=== PATIENT | male | born 1990 | race African-American/Black ===

== ENCOUNTER 2018-09-25 23:13 | Emergency (ER) | payer SELFPAY ==
[~2018-09-25] VITALS: Ht 177.8 cm; Wt 82.0 kg
[~2018-09-25 23:13] MED LIST: BENADRYL; NYQUIL
[2018-09-26 00:02] LABS: BASOPHILS % 0.5 % (0.0-2.0); EOSINOPHILS % 0.5 % (0.0-5.0); HEMATOCRIT. 53.2 % (42.0-52.0); HEMOGLOBIN. 18.1 g/dL (14.0-18.0); LYMPHOCYTES % 29.6 % (20.0-50.0); MEAN CORPUSCULAR HEMOGLOBIN 29.7 pg (28.0-32.0); MEAN CORPUSCULAR VOLUME 87.1 fL (80.0-94.0); MEAN PLATELET VOLUME 7.8 fl (7.4-10.4); MONOCYTES % 8.2 % (2.0-8.0); NEUTROPHILS % 61.2 % (40.0-76.0); PLATELET 222 x1000/uL (130-400); RED CELL DISTRIBUTION WIDTH 13.9 % (11.6-14.6)
[2018-09-26 00:06] LABS: CHLORIDE 105 mEq/L (98-107)
[2018-09-26 00:11] LABS: ETHANOL BLOOD < 10 mg/dL
[2018-09-26 01:45] VITALS: BP 141/76
== END 2018-09-26 03:02 | disposition home or self-care (01) ==
LOC: ER 23:13
DX: R06.02 Shortness of breath (principal); F15.10 Other stimulant abuse, uncomplicated; F14.10 Cocaine abuse, uncomplicated; F17.210 Nicotine dependence, cigarettes, uncomplicated
CPT/HCPCS: 36415; 80053; 80307; 80320; 80329; 82962; 85025; 99283; Z7610; G0480

== ENCOUNTER 2018-09-26 06:39 | Inpatient (IN) | payer SELFPAY ==
[~2018-09-26] VITALS: Ht 175.3 cm; Wt 95.5 kg
[2018-09-26 08:06] LABS: BASOPHILS % 0.4 % (0.0-2.0); EOSINOPHILS % 0.2 % (0.0-5.0); HEMOGLOBIN. 17.9 g/dL (14.0-18.0); LYMPHOCYTES % 19.1 % (20.0-50.0); MEAN CORPUSCULAR HEMOGLOBIN 29.7 pg (28.0-32.0); MEAN CORPUSCULAR VOLUME 86.2 fL (80.0-94.0); MEAN PLATELET VOLUME 8.1 fl (7.4-10.4); MONOCYTES % 8.6 % (2.0-8.0); NEUTROPHILS % 71.7 % (40.0-76.0); PLATELET 217 x1000/uL (130-400); RED BLOOD CELL COUNT 6.03 mill/uL (4.7-6.1); RED CELL DISTRIBUTION WIDTH 13.7 % (11.6-14.6)
[2018-09-26 08:12] LABS: CHLORIDE 108 mEq/L (98-107)
[2018-09-26] MEDS ORDERED: LORAZEPAM 1MG TABLET PO ONE (09:15)
[2018-09-26] MEDS ORDERED: ENOXAPARIN 100MG/ML SYR SUBCUT ONE (09:45)
[2018-09-26] MEDS ORDERED: ACETAMINOPHEN 325MG TABLET PO PRN (10:15)
[2018-09-26] MEDS ORDERED: LORAZEPAM 0.5MG TABLET PO PRN (10:15)
[2018-09-26] MEDS ORDERED: NITROGLYCERIN 0.4MG TABLET SL SL PRN (10:15)
[2018-09-26] MEDS ORDERED: CLONIDINE 0.1MG TABLET PO PRN (10:15)
[2018-09-26] MEDS ORDERED: ONDANSETRON HCL 4MG/2ML INJ IV PRN (10:15)
[2018-09-26] MEDS ORDERED: GUAIFENESIN 200MG/10ML SUGAR FREE UDC PO PRN (10:15)
[2018-09-26] MEDS ORDERED: KETOROLAC 15MG/ML VIAL IV PRN (10:15)
[2018-09-26] MEDS ORDERED: DOCUSATE SODIUM 100MG CAPSULE PO PRN (10:15)
[2018-09-26] MEDS ORDERED: IPRATROPIUM/ALBUTEROL 0.5-3(2.5)MG/3ML NEB INH PRN (10:15)
[2018-09-26] MEDS ORDERED: MAGNESIUM/ALUMINUM HYDROXIDE/SIMETHICONE 30ML UDC PO PRN (10:15)
[2018-09-26 10:20] LABS: ETHANOL BLOOD < 10 mg/dL
[2018-09-26 10:24] LABS: LDL CHOLESTEROL 89 mg/dL (5-100)
[2018-09-26 10:25] LABS: HDL CHOLESTEROL 70 mg/dL (40-59)
[2018-09-26] MEDS: ASPIRIN 325MG EC TABLET PO SCH (11:01)
[2018-09-26 11:25] VITALS: BP 112/48
[2018-09-26] MEDS ORDERED: DILTIAZEM HCL 60MG TABLET PO SCH (12:00)
[2018-09-26 12:02] LABS: *AMPHETAMINES SCREEN URINE PRESUMTIVE POSITIVE (NEGATIVE); *BARBITURATES SCREEN URINE NEGATIVE (NEGATIVE); *BENZODIAZEPINES SCREEN URINE NEGATIVE (NEGATIVE); *COCAINE SCREEN URINE NEGATIVE (NEGATIVE); METHADONE URINE SCREEN NEGATIVE (NEGATIVE); OPIATES URINE SCREEN NEGATIVE (NEGATIVE)
[2018-09-26 12:03] LABS: CANNABINOID URINE SCREEN PRESUMTIVE POSITIVE (NEGATIVE); PHENCYCLIDINE URINE SCREEN NEGATIVE (NEGATIVE)
[2018-09-26] MEDS ORDERED: POTASSIUM CHLORIDE 20MEQ TABLET SR PO NR (13:00)
[2018-09-26] MEDS ORDERED: CLONIDINE 0.2MG TABLET PO PRN (13:00)
[2018-09-26] MEDS: FAMOTIDINE 20MG TABLET PO SCH ×2 (13:15→21:57)
[2018-09-26 16:00] VITALS: BP 127/68
[2018-09-26 16:42] LABS: CREATINE KINASE 681 IU/L (39-308)
[2018-09-26 16:43] LABS: CREATINE KINASE MB FRACTION 6.5 ng/mL (0.5-3.6)
[2018-09-26] MEDS: DILTIAZEM HCL 90MG TABLET NG SCH (18:12)
[2018-09-26 20:00] VITALS: BP 117/60
[2018-09-26] MEDS ORDERED: ZOLPIDEM TARTRATE 5MG TABLET PO PRN (21:00)
[2018-09-26] MEDS: ENOXAPARIN 100MG/ML SYR SUBCUT SCH (21:58)
[2018-09-27] VITALS: BP 122/50
[2018-09-27 00:12] LABS: CREATINE KINASE 604 IU/L (39-308)
[2018-09-27 00:13] LABS: CREATINE KINASE MB FRACTION 5.3 ng/mL (0.5-3.6)
[2018-09-27] MEDS: DILTIAZEM HCL 90MG TABLET NG SCH ×3 (00:48→12:06)
[2018-09-27 04:00] VITALS: BP 108/58
[2018-09-27 06:19] LABS: BASOPHILS % 0.4 % (0.0-2.0); EOSINOPHILS % 2.2 % (0.0-5.0); HEMATOCRIT. 47.8 % (42.0-52.0); HEMOGLOBIN. 16.5 g/dL (14.0-18.0); LYMPHOCYTES % 33.9 % (20.0-50.0); MEAN CORPUSCULAR HEMOGLOBIN 30.3 pg (28.0-32.0); MEAN PLATELET VOLUME 7.9 fl (7.4-10.4); MONOCYTES % 9.3 % (2.0-8.0); NEUTROPHILS % 54.2 % (40.0-76.0); PLATELET 193 x1000/uL (130-400); RED BLOOD CELL COUNT 5.43 mill/uL (4.7-6.1); RED CELL DISTRIBUTION WIDTH 13.6 % (11.6-14.6)
[2018-09-27 06:43] LABS: CHLORIDE 111 mEq/L (98-107)
[2018-09-27 06:54] LABS: CREATINE KINASE MB FRACTION 4.6 ng/mL (0.5-3.6)
[2018-09-27 06:55] LABS: CREATINE KINASE 545 IU/L (39-308)
[2018-09-27 06:57] LABS: HDL CHOLESTEROL 54 mg/dL (40-59); LDL CHOLESTEROL 84 mg/dL (5-100)
[2018-09-27 08:00] VITALS: BP 92/62
[2018-09-27] MEDS: FAMOTIDINE 20MG TABLET PO SCH (09:04)
[2018-09-27] MEDS: ASPIRIN 325MG EC TABLET PO SCH (09:04)
[2018-09-27] MEDS: ENOXAPARIN 100MG/ML SYR SUBCUT SCH (09:05)
[2018-09-27 11:16] VITALS: BP 18/119
[2018-09-27 12:00] VITALS: BP 119/64
[2018-09-27] MEDS ORDERED: POTASSIUM CHLORIDE 20MEQ TABLET SR PO NR (14:00)
== END 2018-09-27 15:15 | disposition home or self-care (01) | DRG 201 ==
LOC: ER 06:39 → 5WST 09:34 → ENRESERV 10:45
PROVIDERS: ADMIT Internal Medicine; ATTEND Internal Medicine
DX: I48.91 Unspecified atrial fibrillation (principal); D72.829 Elevated white blood cell count, unspecified; I47.1 Supraventricular tachycardia; F12.10 Cannabis abuse, uncomplicated; F15.10 Other stimulant abuse, uncomplicated; F17.210 Nicotine dependence, cigarettes, uncomplicated; F41.9 Anxiety disorder, unspecified; I10 Essential (primary) hypertension; Z82.41 Family history of sudden cardiac death; Z59.0 Homelessness; Z79.899 Other long term (current) drug therapy
CPT/HCPCS: 36415; 71045; 80061; 80305; 80320; 82550; 82553; 83036; 83735; 83880; 84443; 84484; 85379; 93005; 93306; 93970; 96372; 99285; J1650; G0480

== ENCOUNTER 2021-07-03 15:06 | Emergency (ER) | payer MEDICAID ==
[~2021-07-03] VITALS: Ht 175.3 cm; Wt 104.0 kg
[2021-07-03] MEDS ORDERED: HYDROCODONE/ACETAMINOPHEN 5/325MG TABLET PO ONE (15:45)
[2021-07-03 15:59] LABS: BASOPHILS % 0.5 % (0.0-2.0); EOSINOPHILS % 1.7 % (0.0-5.0); HEMATOCRIT. 41.4 % (42.0-52.0); HEMOGLOBIN. 14.3 g/dL (14.0-18.0); LYMPHOCYTES % 24.9 % (20.0-50.0); MEAN CORPUSCULAR HEMOGLOBIN 29.6 pg (28.0-32.0); MEAN PLATELET VOLUME 7.7 fl (7.4-10.4); NEUTROPHILS % 65.9 % (40.0-76.0); PLATELET 193 x1000/uL (130-400); RED BLOOD CELL COUNT 4.81 mill/uL (4.7-6.1); RED CELL DISTRIBUTION WIDTH 13.6 % (11.6-14.6)
[2021-07-03 16:04] LABS: CHLORIDE 111 mEq/L (98-107)
[2021-07-03] MEDS ORDERED: IOHEXOL-300 100 ML BOTTLE ONE (16:30)
[2021-07-03] MEDS ORDERED: AMOX-424 MT (17:08)
[2021-07-03 17:43] VITALS: BP 126/75
== END 2021-07-03 17:44 | disposition home or self-care (01) ==
LOC: ER 15:13
DX: K04.7 Periapical abscess without sinus (principal); R51.9 Headache, unspecified; F14.10 Cocaine abuse, uncomplicated; F12.10 Cannabis abuse, uncomplicated; F15.10 Other stimulant abuse, uncomplicated
CPT/HCPCS: 36415; 70491; 80053; 85025; 99285; Q9967